=== PATIENT | female | born 1945 | race Caucasian/White ===

== ENCOUNTER → 2017-04-04 | Outpatient (CLI) | payer MEDICARE, OTHER ==
[~2017-04-04] MED LIST: ALBUTEROL0.09 MG/A2 IH; ASA; ATARAX25 MG PO; ATIVAN0.5 MG; ATIVAN0.5 MG PO; Bactrim Ds 8001 TAB PO; DUONEB 3 MG/3 ML3 M1 INH; FEOSOL300 MG PO; FUROSEMIDE40 MG PO; GLYBURIDE5 MG; GLYBURIDE5 MG PO; HYDROCODONE BIT1 T11 PO; INSULIN; IRON; KEFLEX500 MG PO; LASIX40 MG; LEVAQUIN750 MG PO; LEVOTHYROXIN0.125 MG PO; LISINOPRIL/HCTZ1 TA3; LISINOPRIL/HCTZ1 TA3 PO; METFORMIN500 MG; METFORMIN500 MG PO; MOBIC7.5 MG PO; NORCO 325 MG-7.1 TAB PO; PHENERGAN12.5 M1 PO; POTASSIUM; PREDNICOT20 MG PO; PROZAC20 MG; PROZAC20 MG PO; RANITIDINE150 MG PO; SYNTHROID0.125 MG; VALIUM5 MG PO; VICODIN ES 7501 TAB PO; ZANTAC150 MG; ZOLPIDEM10 M1 PO; [UNRECOGNIZED DRUG - OTHER] PO
[2017-04-04 11:02] LABS: HEMATOCRIT 34.7 % (37.0-47.0); HEMOGLOBIN 11.2 g/dl (12.0-16.0); MEAN CELL VOLUME 84.2 fl (81.0-99.0); MEAN CORPUSCULAR HGB 27.2 pg (27.0-31.0); MEAN CORPUSCULAR HGB CONC 32.3 g/dl (33.0-37.0); PLATELET COUNT AUTOMATED 230 10*3/uL (130-400); RED BLOOD COUNT 4.12 10*6/uL (4.10-5.10); WHITE BLOOD COUNT 10.7 10*3/uL (4.8-10.8)
[2017-04-04 11:29] LABS: LYMPHOCYTE # 0.3 10*3/uL (1.3-4.4); MONOCYTE # 0.3 10*3/uL (0.1-1.0); NEUTROPHIL # 10.1 10*3/uL (2.3-7.9); NEUTROPHILS 94 % (47-73); OVALOCYTES FEW; PLATELET SUFFICIENCY NORMAL (NORMAL); TOTAL CELLS COUNTED 100 #CELLS
== END | disposition home or self-care (01) ==
LOC: LAB 10:32
PROVIDERS: Orthopaedic Surgery
DX: M79.605 Pain in left leg (principal); M79.604 Pain in right leg

== ENCOUNTER → 2017-04-25 | Outpatient (CLI) | payer MEDICARE ==
[2017-04-25 11:52] LABS: BASO % 0.5 % (0.0-1.0); EOS # 0.1 10*3/uL (0.0-0.4); HEMATOCRIT 35.2 % (37.0-47.0); HEMOGLOBIN 11.2 g/dl (12.0-16.0); LYMPH # 1.4 10*3/uL (1.3-4.4); LYMPH % 23.2 % (27.0-41.0); MEAN CELL VOLUME 85.4 fl (81.0-99.0); MEAN CORPUSCULAR HGB 27.2 pg (27.0-31.0); MEAN CORPUSCULAR HGB CONC 31.8 g/dl (33.0-37.0); MEAN PLATELET VOLUME 10.1 fl (9.6-12.3); MONO # 0.4 10*3/uL (0.1-1.0); MONO % 6.7 % (3.0-9.0); NEUT # 4.1 10*3/uL (2.3-7.9); NEUT % 67.9 % (47.0-73.0); PLATELET COUNT AUTOMATED 182 10*3/uL (130-400); RED BLOOD COUNT 4.12 10*6/uL (4.10-5.10); RED CELL DISTRI WIDTH 15.1 % (0-14.5); WHITE BLOOD COUNT 6.1 10*3/uL (4.8-10.8)
[2017-04-26 08:10] LABS: COMPLEMENT C4 001834 27 mg/dL (14-44)
[2017-04-26 09:06] LABS: IMMUNOGLOBULIN IgE 002170 35 IU/mL (0-100)
[2017-04-28 13:05] LABS: A TITER 1:16 (.); ANTIBODY SCREEN Negative (.); B TITER Not indicated. (.); BLOOD GROUPING B (.)
[2017-04-28 14:07] LABS: IGG SUBCLASS 1 307 mg/dL (248-810); IGG SUBCLASS 2 185 mg/dL (130-555); IGG SUBCLASS 3 78 mg/dL (15-102); IGG SUBCLASS 4 8 mg/dL (2-96)
== END | disposition home or self-care (01) ==
LOC: LAB 10:36
PROVIDERS: Allergy & Immunology
DX: J18.9 Pneumonia, unspecified organism (principal); D83.9 Common variable immunodeficiency, unspecified

== ENCOUNTER → 2017-04-28 | Outpatient (CLI) | payer MEDICARE | END | disposition home or self-care (01) | LOC: LAB 01:47 | PROVIDERS: Allergy & Immunology | DX: J18.9 Pneumonia, unspecified organism (principal); D83.9 Common variable immunodeficiency, unspecified ==

== ENCOUNTER → 2017-05-05 | Day surgery (SDC) | payer MEDICARE ==
[2017-05-05] VITALS (7 sets, daily range): BP systolic 135–165; BP diastolic 54–69
[~2017-05-05] MED LIST changes: +ALLEGRA ALLERG180 M2 PO; +CHOLESTYRAMI239.4 GM PO; +GLIPIZIDE5 MG PO; -LEVOTHYROXIN0.125 MG PO; +LEVOXYL112 MCG PO; +LIPITOR40 MG PO; +LISINOPRIL10 M1 PO; +LOPRESSOR25 MG PO; +METOPROLOL TART50 M1 PO; +POTASSIUM CHLOR8 ME1 PO; +PREDNISONE5 MG PO; +VICODIN ES 7.51 EACH PO
[2017-05-05 12:24] LABS: ACT PARTIAL THROMBO TIME 20.4 SECONDS (20.8-31.5)
== END | disposition home or self-care (01) ==
LOC: EDSTATUS 13:00 → SDC 15:23
PROVIDERS: Physician Assistant
DX: M54.5 Low back pain (principal); R53.1 Weakness; Z98.1 Arthrodesis status; M75.41 Impingement syndrome of right shoulder; G62.9 Polyneuropathy, unspecified

== ENCOUNTER → 2017-06-27 | Day surgery (SDC) | payer MEDICARE ==
[2017-06-19 11:14] VITALS: BP 132/61
[2017-06-19 12:13] LABS: BASO % 0.6 % (0.0-1.0); EOS % 0.6 % (1.0-4.0); HEMATOCRIT 34.7 % (37.0-47.0); LYMPH # 1.7 10*3/uL (1.3-4.4); LYMPH % 25.8 % (27.0-41.0); MEAN CELL VOLUME 87.6 fl (81.0-99.0); MEAN CORPUSCULAR HGB 27.8 pg (27.0-31.0); MEAN CORPUSCULAR HGB CONC 31.7 g/dl (33.0-37.0); MEAN PLATELET VOLUME 10.1 fl (9.6-12.3); MONO # 0.5 10*3/uL (0.1-1.0); MONO % 7.7 % (3.0-9.0); NEUT # 4.3 10*3/uL (2.3-7.9); NEUT % 64.8 % (47.0-73.0); PLATELET COUNT AUTOMATED 199 10*3/uL (130-400); RED BLOOD COUNT 3.96 10*6/uL (4.10-5.10); RED CELL DISTRI WIDTH 13.7 % (0-14.5); WHITE BLOOD COUNT 6.6 10*3/uL (4.8-10.8)
[2017-06-19 12:16] LABS: BILIRUBIN 1+ (NEGATIVE); BLOOD NEGATIVE (NEGATIVE); CLARITY CLOUDY (CLEAR); COLOR YELLOW (YELLOW); GLUCOSE NEGATIVE (NEGATIVE); KETONE 1+ (NEGATIVE); LEUKO ESTERASE 3+ (NEGATIVE); NITRITE NEGATIVE (NEGATIVE); SPECIFIC GRAVITY 1.015 (1.005-1.030)
[2017-06-19 12:41] LABS: BUN 16 mg/dl (7-24); CHLORIDE 102 mmol/L (98-107); CREATININE 0.93 mg/dL (0.55-1.02); POTASSIUM 4.5 mmol/L (3.5-5.1); SODIUM 141 mmol/L (136-145)
[2017-06-19 12:46] LABS: ACT PARTIAL THROMBO TIME 19.8 SECONDS (20.8-31.5)
[2017-06-19 12:49] LABS: BACTERIA 2+; MUCOUS 2+; WBC TNTC wbc/hpf (0-5)
[~2017-06-27] VITALS: Ht 162.5 cm; Wt 77.1 kg
[~2017-06-27] MED LIST changes: +IPRATROPIU0.2 MG/1 M INH; +NORCO 7.5-3251 EACH PO
--- NOTE | ~2017-06-27 | PROC NOTE ---
[place], [place] PROCEDURE NOTE [id number] UNIT #: [id number] ROOM: DOCTOR: OLIVER CUEVA MD BIRTHDATE: [birth year] DOS: 06/27/2017 PREOPERATIVE DIAGNOSIS: Poor intravenous access. POSTOPERATIVE DIAGNOSIS: Poor intravenous access. PROCEDURE: Left internal jugular MediPort placement. SURGEON: Oliver Cueva MD VOCAL PERFORMER: J LUIS. ANESTHESIA: MAC. INDICATIONS: This is a 71-year-old lady who is here for a left internal jugular MediPort placement for poor IV access. The procedure and its complications were explained to the patient in detail preoperatively. Complications that were discussed included but were not limited to bleeding, infection, hemothorax formation, pneumothorax formation and prolonged pain. She agreed to proceed. DESCRIPTION OF PROCEDURE: After identifying the patient, the patient was brought to the operating suite and laid in the supine position. After timeout procedure was called, IV sedation was administered and the parts were then painted and draped in the usual sterile fashion. With the help of an ultrasound machine, the left internal jugular vein was accessed via Seldinger technique. The guidewire was passed and it was confirmed to be in good position on fluoroscopy. Thereafter, a pocket was created on the anterior chest wall approximately 2-3 fingerbreadths below the left collarbone. This was done after local anesthesia was infiltrated (1% plain lidocaine). After an adequate pocket was created, a catheter was passed over introducer from this incision into the neck where the wire was placed for the internal jugular vein. Over the wire now, the dilator and sheath was passed and the wire was removed. Through the sheath, the catheter was passed and it was confirmed to be in good position on fluoroscopy. Thereafter, the catheter was cut to adequate size and the port was attached. The catheter was now flushed with mesh and was found to flush well and also the return of blood was good. At this point, the catheter was now fixed to the underlying chest wall with the help of 3-0 Prolene and the edges of the skin were approximated first by approximating the subcutaneous tissue with the help of 3-0 Vicryl in a running fashion and the skin edges then with the help of 4-0 Vicryl in a subcuticular running fashion. Dressing was placed. The patient tolerated the procedure well and was brought back to the recovery room in stable fashion where a chest x-ray was ordered, also the left neck incision was approximated with the help of 4-0 Vicryl in a subcuticular fashion. There were no complications. Dr. Oliver Cueva, the attending surgeon, was present throughout the operating case. [place], [place] PROCEDURE NOTE NAME: JUANCARLOS BRAMBILA UNIT #: [id number] ROOM: DOCTOR: OLIVER CUEVA MD BIRTHDATE: [birth year] Oliver Cueva MD CM:PROCNOTE:PROCEDURE NOTE [id number] OLIVER CUEVA MD
[2017-06-27 06:45] VITALS: BP 112/52
[2017-06-27 08:22] VITALS: BP 109/40
[2017-06-27 08:35] VITALS: BP 115/44
[2017-06-27 08:48] VITALS: BP 132/54
== END | disposition home or self-care (01) ==
LOC: SDC 06-17 08:00
PROVIDERS: Surgery
DX: Z45.2 Encounter for adjustment and management of vascular access device (principal); E07.9 Disorder of thyroid, unspecified; E11.9 Type 2 diabetes mellitus without complications; I10 Essential (primary) hypertension; K21.9 Gastro-esophageal reflux disease without esophagitis; F41.9 Anxiety disorder, unspecified; E78.00 Pure hypercholesterolemia, unspecified; Z98.1 Arthrodesis status; Z90.49 Acquired absence of other specified parts of digestive tract; Z83.3 Family history of diabetes mellitus; Z82.49 Family history of ischemic heart disease and other diseases of the circulatory system; Z80.9 Family history of malignant neoplasm, unspecified

== ENCOUNTER → 2017-07-03 | Outpatient (CLI) | payer MEDICARE | END | disposition home or self-care (01) | LOC: US 10:00 | DX: R79.89 Other specified abnormal findings of blood chemistry (principal); Z90.49 Acquired absence of other specified parts of digestive tract ==

== ENCOUNTER 2017-08-20 16:41 | Inpatient (IN) | payer MEDICARE ==
[~2017-08-20] VITALS: Ht 162.5 cm; Wt 82.6 kg
--- NOTE | ~2017-08-20 | WRIGHTHP ---
[place], [place] PATIENT HISTORY AND PHYSICAL EXAM NAME: JUANCARLOS BRAMBILA [facility] #: [id number] UNIT #: [id number] ROOM: 419 DOCTOR: HALI ELAINE MD BIRTHDATE: [birth year] DOS: 08/20/2017 HISTORY OF PRESENT ILLNESS: The patient is a 71-year-old female with a past medical history of: 1. Benign essential hypertension. 2. 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 3. Pernicious anemia. 4. Hypothyroidism. 5. Fibromyalgia. 6. History of TIA. 7. Generalized anxiety disorder. 8. Major depression, recurrent, mild. 9. GERD. The patient presented to the Emergency Department with recurrent complaints of substernal chest pains and some feeling of shortness of breath. The patient's symptoms resolved in the Emergency Department. She was admitted and ruled out for myocardial infarction with serial cardiac enzymes. The patient was evaluated by Cardiology and taken for a cardiac stress test, which has come out to be normal. The patient is symptomatic now and will be discharged to home to follow up with her primary care physician, Dr. Peacock next week. The patient is completely asymptomatic now. Ambulatory dysfunction. The patient ambulates with the help of a cane and lives by herself. Mixed hyperlipidemia, followed, treated and controlled. Benign essential hypertension, with controlled blood pressures. Type 2 diabetes mellitus. The patient's blood sugars is to be monitored at home and the patient to bring in sugar results at her next appointment. Her sugar was found to be elevated at 367. The patient is asymptomatic. Mixed hyperlipidemia, treated with Lipitor, treatment to be continued. HOME MEDICATIONS AND DISCHARGE MANAGEMENT: Lipitor 40 mg a day, metoprolol 25 mg a day, mirtazapine 15 mg a day, Pepcid 20 mg b.i.d., levothyroxine 112 mcg daily, glipizide 5 mg b.i.d., fluoxetine 20 mg b.i.d., furosemide 40 mg daily, lisinopril 10 mg a day, potassium 8 mEq daily. FAMILY HISTORY: Noncontributory. ALLERGIES: No known drug allergies. SOCIAL HISTORY: Denies smoking cigarettes, alcohol and drug abuse. FOLLOWUP: At the office next week. [place], [place] PATIENT HISTORY AND PHYSICAL EXAM NAME: JUANCARLOS BRAMBILA UNIT #: [id number] ROOM: 419 DOCTOR: ARGENTINA ANTON,HALI Benavides BIRTHDATE: [birth year] HALI ELAINE MD CM:HISPHYS:PATIENT HISTORY AND PHYSICAL EXAMINATION [phone] HALI ELAINE MD 08/22/17 0212 interface
--- NOTE | ~2017-08-20 | ST ---
[place], [place] EXERCISE STRESS TEST REPORT NAME: JUANCARLOS BRAMBILA UNIT #: [id number] ROOM: 419 DOCTOR: RAQUEL TIDWELL MD BIRTHDATE: [birth year] DOS: 08/21/2017 LEXISCAN STRESS EKG REFERRING PHYSICIAN: Dr. Kwok INDICATION: Chest pain. Baseline EKG is normal sinus rhythm with baseline heart rate of 65 with a blood pressure of 132/62. Peak heart rate is 113 with a blood pressure of 150/78. Patient had mild chest heaviness, no EKG changes, no arrhythmias. SUMMARY OF FINDINGS: Unremarkable Lexiscan stress EKG. Please see separate report for perfusion scan results. RAQUEL TIDWELL MD CM:STRESS:EXERCISE STRESS TEST REPORT [id number] RAQUEL TIDWELL MD
[2017-08-20 16:41] VITALS: BP 146/76
[2017-08-20 17:09] LABS: BASO % 0.4 % (0.0-1.0); EOS % 0.6 % (1.0-4.0); HEMATOCRIT 30.8 % (37.0-47.0); HEMOGLOBIN 9.9 g/dl (12.0-16.0); LYMPH # 1.4 10*3/uL (1.3-4.4); LYMPH % 20.7 % (27.0-41.0); MEAN CELL VOLUME 86.5 fl (81.0-99.0); MEAN CORPUSCULAR HGB 27.8 pg (27.0-31.0); MEAN CORPUSCULAR HGB CONC 32.1 g/dl (33.0-37.0); MEAN PLATELET VOLUME 9.8 fl (9.6-12.3); MONO # 0.5 10*3/uL (0.1-1.0); MONO % 7.8 % (3.0-9.0); NEUT # 4.7 10*3/uL (2.3-7.9); NEUT % 69.9 % (47.0-73.0); PLATELET COUNT AUTOMATED 196 10*3/uL (130-400); RED BLOOD COUNT 3.56 10*6/uL (4.10-5.10); RED CELL DISTRI WIDTH 13.6 % (0-14.5); WHITE BLOOD COUNT 6.7 10*3/uL (4.8-10.8)
[2017-08-20 17:20] LABS: ACT PARTIAL THROMBO TIME 21.8 SECONDS (20.8-31.5)
[2017-08-20 17:25] LABS: ALBUMIN 3.1 gm/dl (3.1-4.5); CREATININE 1.17 mg/dL (0.55-1.02); POTASSIUM 3.8 mmol/L (3.5-5.1); TOTAL PROTEIN 7.5 gm/dL (6.4-8.2)
[2017-08-20 17:26] LABS: TROPONIN I 0.019 ng/ml (<0.045)
[2017-08-20 17:34] LABS: RETICULOCYTE % 1.96 % (0.50-2.50)
[2017-08-20 17:37] LABS: IRON 33 ug/dL (50-170); TOTAL IRON BINDING CAPACITY 437 ug/dl (250-450)
--- NOTE | 2017-08-20 18:05 | NUR ---
A 71, admitted to , under the services of Dr. ARGENTINA ANTON,HALI Benavides with a diagnosis of UNSTABLE ANGINA. Chief complaint is CHEST PAIN/PRESSURE. Patient arrived via stretcher from ER. Monitor applied. Initial assessment completed. Vital signs taken and recorded. DR. ARGENTINA ANTON,HALI Benavides notified of admission to the unit. Orders received. See assessment for past medical history, medications and allergies. Patient and/or family oriented to unit. [address] visitation policy reviewed. Clothing/patient valuable form completed. EDOUARD SCHMITT
[2017-08-20 18:13] VITALS: BP 135/58
[2017-08-20] MEDS ORDERED: REMERON15 M2 PO (18:38)
--- NOTE | 2017-08-20 18:40 | NUR ---
MEDICAION LIST UPDATED. CALLED AND VARIFIED MEDICAIONS WITH [facility] AND WENT OVER MEDICAIONS WITH PATIENT.
--- NOTE | 2017-08-20 18:47 | NUR ---
PAULETTE TIDWELL ANSWERING SERVICE. DR. AQUINO IS [employer] WORKER. THEY ARE PAGING HIM, AWAITING CALL BACK
[2017-08-20 20:00] VITALS: BP 120/52
--- NOTE | 2017-08-20 21:00 | NUR ---
BLOOD CULTURE AND URINE FOR UA AND CULT SENT PRIOR TO STARTING ANTIBIOTICS.
--- NOTE | 2017-08-20 22:16 | NUR ---
VALIUM GIVEN PER ORDER FOR ANXIETY PER PT. REQUEST. SEE MAR.
[2017-08-21] VITALS: BP 118/55
--- NOTE | 2017-08-21 | NUR ---
VALIUM EFFECTIVE FOR ANXIETY PER PT.
--- NOTE | 2017-08-21 06:23 | NUR ---
called Dr. Reynoos answering service and message left for consult.
--- NOTE | 2017-08-21 07:10 | NUR ---
DR. AQUINO CALLED IN AND NOTIFIED OF CONSULT AND ORDERS RECEIVED TO KEEP PT. NPO
[2017-08-21 08:00] VITALS: BP 125/60
--- NOTE | 2017-08-21 08:00 | NUR ---
IN TO SEE PT, PT ALERT AND ORIENTED, PLEASANT MOOD. NO S/S OF DISTRESS. RESPIRATIONS EASY. PT IS NPO AT THIS TIME SO AM MEDICATIONS HELD DUE TO THAT REASON. PT UNDERSTANDS NPO. ENCOURAGED USE OF CALL LIGHT.
--- NOTE | 2017-08-21 08:30 | NUR ---
Plating Foreman in to talk to patient. Patient states lives at HOME with SON AT TIMES-HE IS A MEDICAL DOCTOR MD. There are 0 HAS RAMP steps in the home. Physician: DR RANGEL [facility]ONE Patient's level of ADLs: MINIMAL ASSIST Patient has working utilities: YES DME: [facility] Follow-up physician's appointment after d/c: PREFERS TO MAKE HER OWN APPT Does patient want to access PORTAL?: Discharge plan HOME. ROSITA STAPLES
[2017-08-21 12:00] VITALS: BP 120/55
--- NOTE | 2017-08-21 12:00 | NUR ---
PT LYING IN BED, RESPRIATIONS EASY, NO S/S OF DISTRESS. ENCOURAGED USE OF CALL LIGHT.
--- NOTE | 2017-08-21 13:45 | NUR ---
PT OFF FLOOR FOR STRESS TEST AT THIS TIME.
--- NOTE | 2017-08-21 14:45 | NUR ---
INFORMED CONSENT OBTAINED FOR LEXISCAN NUCLEAR STRESS WITH DR. TIDWELL. RESTING EKG NSR WITH A RESTING HR OF 65 AND BP OF 132/62. LUNGS CLEAR WITH SPO2 OF 99% ON ROOM AIR. PT COMPLETED A 1:00 LEXISCAN PROTOCOL RECEIVING LEXISCAN 0.4 MG IV OVER 10 SECONDS. HAD C/O "CHEST HEAVINESS" THAT WAS RELIEVED IN RECOVERY. HAD NO EKG CHANGES. HAD A PEAK HR OF 113 WITH BP OF 152/78. LAST RECOVERY HR OF 102 WITH BP OF 150/78. AWAITING SCANNING IN STABLE CONDITION.
[2017-08-21 16:00] VITALS: BP 128/48
--- NOTE | 2017-08-21 16:30 | NUR ---
PT RETURNS TO FLOOR FROM STRESS TEST. NO NEW ABNORMALITIES, RESPIRATIONS EASY AND UNLABORED. ALL NEEDS CURRENTLY MET. ENCOURAGED USE OF CALL LIGHT.
--- NOTE | 2017-08-21 17:36 | NUR ---
SPOKE WITH DR. TIDWELL, PT STRESS TEST IS NEGATIVE. RELAYED MESSAGE TO DR. ELAINE, PRIMARY CARE PHYSICIAN.
--- NOTE | 2017-08-21 18:30 | NUR ---
Discharge instructions reviewed with patient/family. Patient receptive and verbalizes understanding. Follow-up care arranged. Written instructions given to patient/family. SHAAN BERRY
== END 2017-08-21 18:30 | disposition home or self-care (01) | DRG 303 ==
LOC: ED 16:41 → 4E 17:08 → EDHOLD 17:08 → 4E 17:35
PROVIDERS: Emergency Medicine; ADMIT Internal Medicine
PROC: 3E073KZ Introduction of Other Diagnostic Substance into Coronary Artery, Percutaneous Approach (ICD-10-PCS; principal; 2017-08-21)
PROC: 4A02XM4 Measurement of Cardiac Total Activity, External Approach (ICD-10-PCS; principal; 2017-08-21)
DX: I25.110 Atherosclerotic heart disease of native coronary artery with unstable angina pectoris (principal); E11.22 Type 2 diabetes mellitus with diabetic chronic kidney disease; I50.9 Heart failure, unspecified; I13.0 Hypertensive heart and chronic kidney disease with heart failure and stage 1 through stage 4 chronic kidney disease, or unspecified chronic kidney disease; E87.1 Hypo-osmolality and hyponatremia; F33.9 Major depressive disorder, recurrent, unspecified; E83.42 Hypomagnesemia; R74.0 Nonspecific elevation of levels of transaminase and lactic acid dehydrogenase [LDH]; M47.896 Other spondylosis, lumbar region; E89.0 Postprocedural hypothyroidism; M47.892 Other spondylosis, cervical region; F41.1 Generalized anxiety disorder; K21.9 Gastro-esophageal reflux disease without esophagitis; M15.9 Polyosteoarthritis, unspecified; N18.3 Chronic kidney disease, stage 3 (moderate); E78.2 Mixed hyperlipidemia; M79.7 Fibromyalgia; Z79.899 Other long term (current) drug therapy; D50.9 Iron deficiency anemia, unspecified; Z87.01 Personal history of pneumonia (recurrent); Z98.51 Tubal ligation status; Z90.49 Acquired absence of other specified parts of digestive tract; Z90.710 Acquired absence of both cervix and uterus; Z83.3 Family history of diabetes mellitus; Z82.3 Family history of stroke; Z80.9 Family history of malignant neoplasm, unspecified; Z82.49 Family history of ischemic heart disease and other diseases of the circulatory system; Z86.73 Personal history of transient ischemic attack (TIA), and cerebral infarction without residual deficits; Z85.850 Personal history of malignant neoplasm of thyroid; Z98.1 Arthrodesis status; Z72.89 Other problems related to lifestyle; Z87.891 Personal history of nicotine dependence; Z79.84 Long term (current) use of oral hypoglycemic drugs

== ENCOUNTER → 2017-11-05 | Outpatient (CLI) | payer MEDICARE ==
[~2017-11-05] MED LIST changes: +REMERON15 M2 PO
== END | disposition home or self-care (01) ==
LOC: MAMMO 10:37
DX: Z12.31 Encounter for screening mammogram for malignant neoplasm of breast (principal); Z13.820 Encounter for screening for osteoporosis; R92.8 Other abnormal and inconclusive findings on diagnostic imaging of breast; N95.9 Unspecified menopausal and perimenopausal disorder; Z90.710 Acquired absence of both cervix and uterus; C73 Malignant neoplasm of thyroid gland

== ENCOUNTER → 2017-12-02 | Outpatient (CLI) | payer MEDICARE | END | disposition home or self-care (01) | LOC: RAD 16:12 | DX: M43.16 Spondylolisthesis, lumbar region (principal) ==

== ENCOUNTER → 2018-02-19 | Outpatient (CLI) | payer MEDICARE ==
[~2018-02-19] MED LIST changes: +CIPRO500 MG PO; +CYMBALTA30 MG PO; +FLAGYL500 MG PO; +HUMULIN 70/30 703 M1 SC
[2018-02-19 12:03] LABS: BASO # 0.1 10*3/uL (0.0-0.1); BASO % 0.8 % (0.0-1.0); EOS # 0.2 10*3/uL (0.0-0.4); EOS % 1.6 % (1.0-4.0); HEMATOCRIT 38.3 % (37.0-47.0); HEMOGLOBIN 12.3 g/dl (12.0-16.0); LYMPH # 1.8 10*3/uL (1.3-4.4); LYMPH % 19.5 % (27.0-41.0); MEAN CORPUSCULAR HGB 29.2 pg (27.0-31.0); MEAN CORPUSCULAR HGB CONC 32.1 g/dl (33.0-37.0); MEAN PLATELET VOLUME 9.7 fl (9.6-12.3); MONO # 0.7 10*3/uL (0.1-1.0); MONO % 7.4 % (3.0-9.0); NEUT # 6.6 10*3/uL (2.3-7.9); NEUT % 70.1 % (47.0-73.0); PLATELET COUNT AUTOMATED 265 10*3/uL (130-400); RED BLOOD COUNT 4.21 10*6/uL (4.10-5.10); RED CELL DISTRI WIDTH 13.4 % (0-14.5); WHITE BLOOD COUNT 9.4 10*3/uL (4.8-10.8)
[2018-02-19 12:28] LABS: BUN 26 mg/dl (7-24); CREATININE 0.95 mg/dL (0.55-1.02)
== END | disposition home or self-care (01) ==
LOC: LAB 11:37
PROVIDERS: Internal Medicine Hematology & Oncology
DX: D80.1 Nonfamilial hypogammaglobulinemia (principal); D63.8 Anemia in other chronic diseases classified elsewhere

== ENCOUNTER 2018-02-25 08:09 | Inpatient (IN) | payer MEDICARE ==
[2018-02-25] VITALS (7 sets, daily range): BP systolic 109–138; BP diastolic 41–56
[~2018-02-25] VITALS: Ht 162.5 cm; Wt 92.1 kg
--- NOTE | ~2018-02-25 | WRIGHTHP ---
[place], [place] PATIENT HISTORY AND PHYSICAL EXAM [id number] #: [id number] ROOM: [facility] DOCTOR: GEORGIANA RANGEL MD BIRTHDATE: [birth year] DOS: 02/25/2018 HISTORY OF PRESENT ILLNESS: The patient is 72-year-old. The patient has been in fairly good health. On Friday she went to a cookout. She states that she did not eat much other than a few frozen strawberries and some peaches and a chicken sandwich. In the evening, she started having severe abdominal pain, which persisted on Friday and Friday. It got severe, so she finally decided to come into the Emergency Room on Friday. She had a CT of the abdomen done in the ER, which showed evidence of diverticulitis and she was admitted. She has had a low grade fever for the last few days. The fever after admission was in the low 100s. She denies having any chest pains, palpitations. Does not have any nausea and emesis. She feels a little better this morning. PAST MEDICAL HISTORY: Significant for: 1. Last hospitalization in August 2017 with chest pain. She underwent cardiac cath and stent placement after that. 2. Benign hypertension. 3. Type 2 diabetes mellitus. 4. Hypothyroidism. 5. Chronic low back pain. 6. Fibromyalgia. 7. Generalized anxiety disorder. 8. Mild major depression, recurrent. MEDICATIONS: That she is currently on are: Duloxetine 30 daily, Edith 180 daily p.r.n., Lasix 40 daily, Mellott 7.5 b.i.d., levothyroxine 112 mcg daily, lisinopril 10 daily, metoprolol 25 b.i.d., potassium 8 daily, ranitidine 150 b.i.d., insulin 15 units subcutaneous twice a day. SOCIAL HISTORY: Nonsmoker, does not use any alcohol. PHYSICAL EXAMINATION: GENERAL: The patient is awake and alert and oriented. VITAL SIGNS: Blood pressure is 122/70, pulse of 76, respirations 18, T-max 101.8. LUNGS: Diminished breath sounds. HEART: Regular. ABDOMEN: Obese. Some tenderness diffusely, more on the left lower quadrant. ASSESSMENT AND PLAN: 1. A patient who presents with elevated white cell count, high-grade fever and abdominal pain. CT of the abdomen is showing diverticulitis without any abscess formation. The patient is placed on IV antibiotics and IV fluids, clear liquids have been ordered. 2. Possibility of urinary tract infection. Leukocyte esterase is positive along with bacteria. Urine culture is being sent. White cell count is 11.6. 3. Coronary artery disease, stable without any evidence of ongoing cardiac issues. [place], [place] PATIENT HISTORY AND PHYSICAL EXAM NAME: JUANCARLOS BRAMBILA UNIT #: [id number] ROOM: [facility] DOCTOR: GEORGIANA RANGEL MD BIRTHDATE: [birth year] GEORGIANA RANGEL MD CM:HISPHYS:PATIENT HISTORY AND PHYSICAL EXAMINATION [id number] GEORGIANA RANGEL MD 03/14/18 0404 interface
--- NOTE | ~2018-02-25 | PR ---
[place], [place] PROGRESS NOTE NAME: JUANCARLOS BRAMBILA UNIT #: [id number] ROOM: 515 DOCTOR: GEORGIANA RANGEL MD BIRTHDATE: [birth year] DOS: 02/28/2018 SUBJECTIVE: The patient feels very good, does not have any complaints. Abdominal pain is not completely gone, but it is much better since admission. OBJECTIVE: VITAL SIGNS: Graphic trend shows the patient is afebrile. Blood pressure is 116/53, pulse of 69, respirations 20, temperature 98.3. LUNGS: Diminished breath sounds. No wheezes, rales or rhonchi heard. HEART: Regular. ABDOMEN: Obese, soft, nontender. EXTREMITIES: Without any edema. ASSESSMENT AND PLAN: 1. Acute diverticulitis, improved on IV antibiotics. Blood culture shows no bacterial growth. 2. Urinary tract infection with 75,000 colonies of Escherichia coli, on antibiotics. Plan is to discharge her to home today on Cipro and Flagyl for a week. GEORGIANA RANGEL MD CM:PNTRANS [phone] GEORGIANA RANGEL MD 03/01/18 0132 interface
--- NOTE | ~2018-02-25 | PR ---
[place], [place] PROGRESS NOTE NAME: JUANCARLOS BRAMBILA UNIT #: [id number] ROOM: 515 DOCTOR: GEORGIANA RANGEL MD BIRTHDATE: [birth year] DOS: 02/27/2018 SUBJECTIVE: The patient feels much better, does not have any new complaints. Abdominal pain has subsided, but not completely resolved. OBJECTIVE: VITAL SIGNS: Graphic trend shows a pressure of 110/45, pulse of 18, respirations, 75, temperature 97.9. LUNGS: Clear. HEART: Regular. ABDOMEN: Obese. Some minimal diffuse tenderness. EXTREMITIES: Without any edema. LABORATORY DATA: Urine culture shows E. coli, 25,000 colonies. ASSESSMENT AND PLAN: 1. Acute diverticulitis on IV antibiotics. Repeat CBC is pending, but the patient is no longer febrile. Advance the diet and if the white cell count normalizes, plan is to discharge her to home tomorrow. 2. Urinary tract infection with urine culture showing Escherichia coli, already on antibiotics. GEORGIANA RANGEL MD CM:PNTRANS [phone] GEORGIANA RANGEL MD 02/27/182150 interface
--- NOTE | ~2018-02-25 | DS ---
[place], [place] DISCHARGE SUMMARY NAME: JUANCARLOS BRAMBILA UNIT #: [id number] ROOM: 515 DOCTOR: GEORGIANA RANGEL MD BIRTHDATE: [birth year] DOS: 02/28/2018 DIAGNOSES: 1. Acute diverticulitis. 2. Urinary tract infection with Escherichia coli. 3. Coronary artery disease of [place] coronaries. 4. Generalized anxiety disorder. 5. Chronic low back pain. 6. Fibromyalgia. 7. Major depression, mild, recurrent. MEDICATIONS: The patient has been discharged on home medications, new prescription given was Cipro 500 b.i.d. for 7 days and Flagyl 500 t.i.d. for 7 days. HOSPITAL COURSE: The patient is known to us, comes in with complaints of severe abdominal pain. Please refer to H and P for details. The patient was seen in the Emergency Room, a CT of the abdomen was done which showed a noncomplicated diverticulitis. The patient was seen in the ER after eating some frozen strawberries and some peaches. She did not have any nuts or ____. After admission, was placed on IV antibiotics, IV fluids, kept n.p.o. Her pain has lessened and the tenderness in the abdomen is also improved. So, the plan therefore is to discharge her to home. She had a fever in the beginning with elevated white cell count. They have all normalized. So, the plan is to discharge and follow up with outpatient with the antibiotics. The patient will require a colonoscopy as an outpatient. GEORGIANA RANGEL MD CM:DISCHARG [id number] GEORGIANA RANGEL MD 03/13/18 0834 interface
[~2018-02-25 08:09] MED LIST changes: -CIPRO500 MG PO; -CYMBALTA30 MG PO; -FLAGYL500 MG PO; -HUMULIN 70/30 703 M1 SC
[2018-02-25] MEDS ORDERED: CYMBALTA30 MG PO (08:33)
[2018-02-25] MEDS ORDERED: HUMULIN 70/30 703 M1 SC (08:34)
[2018-02-25 09:00] LABS: BASO % 0.2 % (0.0-1.0); EOS # 0.1 10*3/uL (0.0-0.4); EOS % 0.9 % (1.0-4.0); HEMATOCRIT 34.6 % (37.0-47.0); HEMOGLOBIN 11.3 g/dl (12.0-16.0); MEAN CELL VOLUME 89.4 fl (81.0-99.0); MEAN CORPUSCULAR HGB 29.2 pg (27.0-31.0); MEAN CORPUSCULAR HGB CONC 32.7 g/dl (33.0-37.0); MEAN PLATELET VOLUME 9.6 fl (9.6-12.3); MONO # 0.6 10*3/uL (0.1-1.0); MONO % 5.5 % (3.0-9.0); NEUT # 9.7 10*3/uL (2.3-7.9); NEUT % 83.9 % (47.0-73.0); PLATELET COUNT AUTOMATED 171 10*3/uL (130-400); RED BLOOD COUNT 3.87 10*6/uL (4.10-5.10); RED CELL DISTRI WIDTH 13.2 % (0-14.5); WHITE BLOOD COUNT 11.6 10*3/uL (4.8-10.8)
[2018-02-25 09:18] LABS: ALBUMIN 3.1 gm/dl (3.1-4.5); ALKALINE PHOSPHATASE 106 U/L (45-117); BUN 15 mg/dl (7-24); CHLORIDE 103 mmol/L (98-107); CREATININE 0.67 mg/dL (0.55-1.02); LIPASE 103 U/L (73-393); POTASSIUM 4.2 mmol/L (3.5-5.1); SGOT/AST 27 IU/L (3-35); SGPT/ALT 101 U/L (12-78); SODIUM 138 mmol/L (136-145); TOTAL PROTEIN 7.1 gm/dL (6.4-8.2)
[2018-02-25 09:19] LABS: TROPONIN I < 0.015 ng/ml (<0.045)
[2018-02-25 09:46] LABS: BILIRUBIN NEGATIVE (NEGATIVE); BLOOD TRACE-INTACT (NEGATIVE); CLARITY CLOUDY (CLEAR); COLOR YELLOW (YELLOW); GLUCOSE NEGATIVE (NEGATIVE); KETONE NEGATIVE (NEGATIVE); LEUKO ESTERASE 1+ (NEGATIVE); NITRITE NEGATIVE (NEGATIVE); PH 5.5 (5.0-9.0); SPECIFIC GRAVITY 1.025 (1.005-1.030); UROBILINOGEN 0.2 E.U./dl (0.2-1.0)
[2018-02-25 10:15] LABS: BACTERIA 1+; YEAST TRACE
[2018-02-26] VITALS: BP 110/50
[2018-02-26 08:00] VITALS: BP 122/52
[2018-02-26 12:00] VITALS: BP 138/54
[2018-02-26 16:00] VITALS: BP 142/67
[2018-02-26 20:00] VITALS: BP 133/46
[2018-02-27] VITALS: BP 110/45
[2018-02-27 08:00] VITALS: BP 132/75
[2018-02-27 09:54] LABS: BASO % 0.3 % (0.0-1.0); EOS # 0.1 10*3/uL (0.0-0.4); EOS % 1.4 % (1.0-4.0); HEMATOCRIT 31.5 % (37.0-47.0); HEMOGLOBIN 10.4 g/dl (12.0-16.0); LYMPH # 0.4 10*3/uL (1.3-4.4); MEAN CELL VOLUME 89.7 fl (81.0-99.0); MEAN CORPUSCULAR HGB 29.6 pg (27.0-31.0); MEAN PLATELET VOLUME 9.9 fl (9.6-12.3); MONO # 0.3 10*3/uL (0.1-1.0); MONO % 5.1 % (3.0-9.0); NEUT % 85.7 % (47.0-73.0); PLATELET COUNT AUTOMATED 143 10*3/uL (130-400); RED BLOOD COUNT 3.51 10*6/uL (4.10-5.10); RED CELL DISTRI WIDTH 12.7 % (0-14.5); WHITE BLOOD COUNT 5.9 10*3/uL (4.8-10.8)
[2018-02-27 10:05] LABS: BUN 7 mg/dl (7-24); CHLORIDE 104 mmol/L (98-107); CREATININE 0.77 mg/dL (0.55-1.02); POTASSIUM 3.6 mmol/L (3.5-5.1); SODIUM 139 mmol/L (136-145)
[2018-02-27 12:00] VITALS: BP 132/55
[2018-02-27 16:00] VITALS: BP 126/55
[2018-02-27 20:00] VITALS: BP 133/66
[2018-02-28] VITALS: BP 116/53
[2018-02-28] MEDS ORDERED: CIPRO500 MG PO (06:28)
[2018-02-28] MEDS ORDERED: FLAGYL500 MG PO (06:28)
== END 2018-02-28 09:10 | disposition home or self-care (01) | DRG 690 ==
LOC: ED 08:09 → EDHOLD 10:55 → 5E 10:55
PROVIDERS: Emergency Medicine; Internal Medicine
DX: N39.0 Urinary tract infection, site not specified (principal); E11.9 Type 2 diabetes mellitus without complications; K57.32 Diverticulitis of large intestine without perforation or abscess without bleeding; I50.9 Heart failure, unspecified; I11.0 Hypertensive heart disease with heart failure; E66.9 Obesity, unspecified; B96.20 Unspecified Escherichia coli [E. coli] as the cause of diseases classified elsewhere; E78.5 Hyperlipidemia, unspecified; I25.10 Atherosclerotic heart disease of native coronary artery without angina pectoris; F32.9 Major depressive disorder, single episode, unspecified; E89.0 Postprocedural hypothyroidism; R31.9 Hematuria, unspecified; F41.1 Generalized anxiety disorder; G89.29 Other chronic pain; M47.892 Other spondylosis, cervical region; M47.896 Other spondylosis, lumbar region; M79.7 Fibromyalgia; K21.9 Gastro-esophageal reflux disease without esophagitis; Z87.01 Personal history of pneumonia (recurrent); Z90.710 Acquired absence of both cervix and uterus; Z90.49 Acquired absence of other specified parts of digestive tract; Z98.61 Coronary angioplasty status; Z98.1 Arthrodesis status; Z98.51 Tubal ligation status; Z98.84 Bariatric surgery status; Z87.891 Personal history of nicotine dependence; Z82.49 Family history of ischemic heart disease and other diseases of the circulatory system; Z83.3 Family history of diabetes mellitus; Z82.3 Family history of stroke; Z80.8 Family history of malignant neoplasm of other organs or systems; Z88.2 Allergy status to sulfonamides; Z79.899 Other long term (current) drug therapy; Z79.4 Long term (current) use of insulin; Z86.73 Personal history of transient ischemic attack (TIA), and cerebral infarction without residual deficits; Z85.850 Personal history of malignant neoplasm of thyroid; Z68.34 Body mass index [BMI] 34.0-34.9, adult

== ENCOUNTER → 2018-03-20 | Outpatient (CLI) | payer MEDICARE ==
[~2018-03-20] MED LIST changes: +CEFUROXIME AXE250 MG PO; +CEPHALEXIN500 M1 PO; +CIPRO500 MG PO; +CYMBALTA20 M1 PO; +CYMBALTA30 MG PO; +FLAGYL500 MG PO; +HUMULIN 70/30 703 M1 SC; +TRAZODONE50 MG PO
[2018-03-20 11:36] LABS: BASO % 0.7 % (0.0-1.0); EOS # 0.1 10*3/uL (0.0-0.4); EOS % 3.1 % (1.0-4.0); HEMATOCRIT 35.9 % (37.0-47.0); HEMOGLOBIN 11.4 g/dl (12.0-16.0); LYMPH # 1.3 10*3/uL (1.3-4.4); LYMPH % 29.8 % (27.0-41.0); MEAN CELL VOLUME 89.1 fl (81.0-99.0); MEAN CORPUSCULAR HGB 28.3 pg (27.0-31.0); MEAN CORPUSCULAR HGB CONC 31.8 g/dl (33.0-37.0); MEAN PLATELET VOLUME 9.6 fl (9.6-12.3); MONO # 0.4 10*3/uL (0.1-1.0); MONO % 8.8 % (3.0-9.0); NEUT # 2.4 10*3/uL (2.3-7.9); NEUT % 57.1 % (47.0-73.0); PLATELET COUNT AUTOMATED 258 10*3/uL (130-400); RED BLOOD COUNT 4.03 10*6/uL (4.10-5.10); RED CELL DISTRI WIDTH 12.3 % (0-14.5); RETICULOCYTE % 2.15 % (0.50-2.50); WHITE BLOOD COUNT 4.2 10*3/uL (4.8-10.8)
[2018-03-20 12:07] LABS: ALBUMIN 3.3 gm/dl (3.1-4.5); BUN 12 mg/dl (7-24); CHLORIDE 102 mmol/L (98-107); CREATININE 0.73 mg/dL (0.55-1.02); POTASSIUM 4.1 mmol/L (3.5-5.1); SGOT/AST 20 IU/L (3-35); SGPT/ALT 35 U/L (12-78); SODIUM 138 mmol/L (136-145); TOTAL PROTEIN 7.8 gm/dL (6.4-8.2)
[2018-03-20 12:13] LABS: ALKALINE PHOSPHATASE 129 U/L (45-117); FREE T4 1.17 ng/dl (0.76-1.46); IRON 55 ug/dL (50-170); TOTAL IRON BINDING CAPACITY 362 ug/dl (250-450)
[2018-03-20 12:27] LABS: FERRITIN 15.5 ng/mL (10.0-291.0)
[2018-03-21 05:11] LABS: TOTAL PROTEIN, SERUM 7.1 g/dL (6.0-8.5)
[2018-03-21 07:10] LABS: HEPATITIS B SURFACE AG Negative (Negative); HEPATITIS C VIRUS ANTIBODY 0.1 s/co (0.0-0.9)
[2018-03-21 08:44] LABS: IMMUNOGLOBULIN G, QNT 1339 mg/dL (700-1600); IMMUNOGLOBULIN M, QNT 181 mg/dL (26-217)
[2018-03-23 17:08] LABS: ALBUMIN 3.5 g/dL (2.9-4.4); ALPHA-1-GLOBULIN 0.2 g/dL (0.0-0.4); ALPHA-2-GLOBULIN 0.8 g/dL (0.4-1.0); BETA GLOBULIN 1.1 g/dL (0.7-1.3); GAMMA GLOBULIN 1.4 g/dL (0.4-1.8); GLOBULIN, TOTAL 3.6 g/dL (2.2-3.9); M-SPIKE Not Observed g/dL (Not Observed)
== END | disposition home or self-care (01) ==
LOC: LAB 10:59
PROVIDERS: Internal Medicine Hematology & Oncology
DX: D83.9 Common variable immunodeficiency, unspecified (principal); E11.9 Type 2 diabetes mellitus without complications; R53.83 Other fatigue

== ENCOUNTER → 2018-06-26 | Outpatient (CLI) | payer MEDICARE ==
[~2018-06-26] MED LIST changes: +ARNUITY ELLIP100 MCG INH; +ASPIR LOW81 MG PO; +Bactroban Oint22 GM T
[2018-06-26 15:57] LABS: BASO # 0.1 10*3/uL (0.0-0.1); BASO % 0.5 % (0.0-1.0); EOS # 0.2 10*3/uL (0.0-0.4); EOS % 1.5 % (1.0-4.0); HEMATOCRIT 37.6 % (37.0-47.0); HEMOGLOBIN 11.7 g/dl (12.0-16.0); LYMPH # 2.9 10*3/uL (1.3-4.4); LYMPH % 22.8 % (27.0-41.0); MEAN CELL VOLUME 81.6 fl (81.0-99.0); MEAN CORPUSCULAR HGB 25.4 pg (27.0-31.0); MEAN CORPUSCULAR HGB CONC 31.1 g/dl (33.0-37.0); MONO # 0.8 10*3/uL (0.1-1.0); MONO % 6.1 % (3.0-9.0); NEUT # 8.7 10*3/uL (2.3-7.9); NEUT % 68.2 % (47.0-73.0); PLATELET COUNT AUTOMATED 310 10*3/uL (130-400); RED BLOOD COUNT 4.61 10*6/uL (4.10-5.10); RED CELL DISTRI WIDTH 14.6 % (0-14.5); WHITE BLOOD COUNT 12.7 10*3/uL (4.8-10.8)
[2018-06-26 16:15] LABS: ALBUMIN 3.6 gm/dl (3.1-4.5); CREATININE 1.31 mg/dL (0.55-1.02); PHOSPHOROUS 4.5 mg/dL (2.5-4.9); POTASSIUM 4.1 mmol/L (3.5-5.1); TOTAL PROTEIN 7.9 gm/dL (6.4-8.2)
[2018-06-27 08:11] LABS: IMMUNOGLOBULIN G, QNT 776 mg/dL (700-1600)
== END | disposition home or self-care (01) ==
LOC: LAB 15:28
PROVIDERS: Nurse Practitioner
DX: D80.1 Nonfamilial hypogammaglobulinemia (principal)

== ENCOUNTER → 2018-07-17 | Outpatient (CLI) | payer MEDICARE ==
[2018-07-17 13:12] LABS: BASO % 0.6 % (0.0-1.0); EOS # 0.1 10*3/uL (0.0-0.4); EOS % 1.7 % (1.0-4.0); HEMATOCRIT 35.7 % (37.0-47.0); LYMPH # 1.4 10*3/uL (1.3-4.4); MEAN CELL VOLUME 81.5 fl (81.0-99.0); MEAN CORPUSCULAR HGB 25.1 pg (27.0-31.0); MEAN CORPUSCULAR HGB CONC 30.8 g/dl (33.0-37.0); MEAN PLATELET VOLUME 9.7 fl (9.6-12.3); MONO # 0.4 10*3/uL (0.1-1.0); MONO % 7.5 % (3.0-9.0); NEUT # 3.4 10*3/uL (2.3-7.9); PLATELET COUNT AUTOMATED 197 10*3/uL (130-400); RED BLOOD COUNT 4.38 10*6/uL (4.10-5.10); RED CELL DISTRI WIDTH 14.8 % (0-14.5); WHITE BLOOD COUNT 5.2 10*3/uL (4.8-10.8)
[2018-07-17 13:28] LABS: ALBUMIN 3.6 gm/dl (3.1-4.5); ALKALINE PHOSPHATASE 144 U/L (45-117); BUN 14 mg/dl (7-24); CHLORIDE 102 mmol/L (98-107); CREATININE 1.01 mg/dL (0.55-1.02); PHOSPHOROUS 3.1 mg/dL (2.5-4.9); POTASSIUM 4.3 mmol/L (3.5-5.1); SGOT/AST 14 IU/L (3-35); SGPT/ALT 21 U/L (12-78); SODIUM 137 mmol/L (136-145); TOTAL PROTEIN 7.2 gm/dL (6.4-8.2)
[2018-07-18 10:07] LABS: IMMUNOGLOBULIN G, QNT 847 mg/dL (700-1600)
== END | disposition home or self-care (01) ==
LOC: LAB 12:48
PROVIDERS: Nurse Practitioner
DX: D80.1 Nonfamilial hypogammaglobulinemia (principal)

== ENCOUNTER → 2018-08-06 | Outpatient (CLI) | payer MEDICARE ==
[2018-08-06 12:46] LABS: BASO % 0.7 % (0.0-1.0); EOS # 0.2 10*3/uL (0.0-0.4); EOS % 3.3 % (1.0-4.0); HEMATOCRIT 34.3 % (37.0-47.0); HEMOGLOBIN 10.8 g/dl (12.0-16.0); LYMPH # 1.1 10*3/uL (1.3-4.4); LYMPH % 19.3 % (27.0-41.0); MEAN CELL VOLUME 79.8 fl (81.0-99.0); MEAN CORPUSCULAR HGB 25.1 pg (27.0-31.0); MEAN CORPUSCULAR HGB CONC 31.5 g/dl (33.0-37.0); MEAN PLATELET VOLUME 9.9 fl (9.6-12.3); MONO # 0.4 10*3/uL (0.1-1.0); MONO % 6.4 % (3.0-9.0); PLATELET COUNT AUTOMATED 250 10*3/uL (130-400); RED CELL DISTRI WIDTH 15.2 % (0-14.5); WHITE BLOOD COUNT 5.7 10*3/uL (4.8-10.8)
[2018-08-06 13:11] LABS: ALBUMIN 3.5 gm/dl (3.1-4.5); CREATININE 1.11 mg/dL (0.55-1.02); PHOSPHOROUS 3.6 mg/dL (2.5-4.9); POTASSIUM 3.8 mmol/L (3.5-5.1); TOTAL PROTEIN 7.5 gm/dL (6.4-8.2)
[2018-08-07 08:12] LABS: IMMUNOGLOBULIN G, QNT 812 mg/dL (700-1600)
== END | disposition home or self-care (01) ==
LOC: LAB 11:43
PROVIDERS: Nurse Practitioner
DX: D80.1 Nonfamilial hypogammaglobulinemia (principal)

== ENCOUNTER → 2018-08-21 | Outpatient (CLI) | payer MEDICARE | END | disposition home or self-care (01) | LOC: RAD 15:53 | DX: M85.88 Other specified disorders of bone density and structure, other site (principal); M51.36 Other intervertebral disc degeneration, lumbar region; M48.54XD Collapsed vertebra, not elsewhere classified, thoracic region, subsequent encounter for fracture with routine healing; Z91.81 History of falling ==

== ENCOUNTER → 2018-08-31 | Outpatient (CLI) | payer MEDICARE ==
[2018-08-31 15:26] LABS: ALBUMIN 3.7 gm/dl (3.1-4.5); ALKALINE PHOSPHATASE 158 U/L (45-117); BUN 13 mg/dl (7-24); CHLORIDE 101 mmol/L (98-107); CREATININE 0.95 mg/dL (0.55-1.02); PHOSPHOROUS 3.4 mg/dL (2.5-4.9); POTASSIUM 4.1 mmol/L (3.5-5.1); SGOT/AST 16 IU/L (3-35); SGPT/ALT 28 U/L (12-78); SODIUM 139 mmol/L (136-145); TOTAL PROTEIN 7.3 gm/dL (6.4-8.2)
[2018-08-31 15:35] LABS: BASO # 0.1 10*3/uL (0.0-0.1); BASO % 0.8 % (0.0-1.0); EOS # 0.1 10*3/uL (0.0-0.4); EOS % 1.8 % (1.0-4.0); HEMATOCRIT 33.8 % (37.0-47.0); HEMOGLOBIN 10.5 g/dl (12.0-16.0); LYMPH # 1.2 10*3/uL (1.3-4.4); LYMPH % 20.1 % (27.0-41.0); MEAN CELL VOLUME 79.5 fl (81.0-99.0); MEAN CORPUSCULAR HGB 24.7 pg (27.0-31.0); MEAN CORPUSCULAR HGB CONC 31.1 g/dl (33.0-37.0); MEAN PLATELET VOLUME 9.2 fl (9.6-12.3); MONO # 0.5 10*3/uL (0.1-1.0); MONO % 7.9 % (3.0-9.0); NEUT # 4.2 10*3/uL (2.3-7.9); NEUT % 69.1 % (47.0-73.0); PLATELET COUNT AUTOMATED 216 10*3/uL (130-400); RED BLOOD COUNT 4.25 10*6/uL (4.10-5.10); RED CELL DISTRI WIDTH 14.6 % (0-14.5); WHITE BLOOD COUNT 6.1 10*3/uL (4.8-10.8)
[2018-09-01 07:03] LABS: IMMUNOGLOBULIN G, QNT 666 mg/dL (700-1600)
== END | disposition home or self-care (01) ==
LOC: LAB 14:40
PROVIDERS: Nurse Practitioner
DX: D80.1 Nonfamilial hypogammaglobulinemia (principal)

== ENCOUNTER 2018-09-07 09:25 | Inpatient (IN) | payer MEDICARE ==
[~2018-09-07] VITALS: Ht 162.6 cm; Wt 92.1 kg
--- NOTE | ~2018-09-07 | PR ---
[place], [place] PROGRESS NOTE NAME: JUANCARLOS BRAMBILA UNIT #: [id number] ROOM: 402 DOCTOR: HALI ELAINE MD BIRTHDATE: [birth year] DOS: 09/09/2018 SUBJECTIVE: The patient continues to do better. Her breathing is improving. OBJECTIVE: GENERAL APPEARANCE: The patient is alert and oriented x 3, in no visible distress. VITAL SIGNS: Blood pressure 113/45, heart rate of 94 beats per minute, breathing 20 times per minute, temperature 98 degrees Fahrenheit. HEENT AND NECK: Exam within normal limits. CARDIOVASCULAR SYSTEM: Heart rate is regular in rate and rhythm. S1 and S2 normally audible. LUNGS: Clear to auscultation. ABDOMEN: Soft, nontender. No obvious organomegaly. Bowel sounds are present. EXTREMITIES: Without significant cyanosis or edema. IMPRESSION: 1. The patient with acute exacerbation of chronic obstructive pulmonary disease, continues to improve with treatment with corticosteroids, oxygen, nebulizer, antibiotics. I will be able to discharge the patient tomorrow with treatment. 2. Type 2 diabetes mellitus with corticosteroid-induced hyperglycemia. Blood sugars have improved with treatment with insulin. 3. Benign essential hypertension, treated and controlled. 4. Hypothyroidism replaced with levothyroxine. 5. Chronic primary insomnia, treated with trazodone as needed. HALI ELAINE MD CM:PNTRANS [id number] HALI ELAINE MD 09/09/18 1147 interface
--- NOTE | ~2018-09-07 | DS ---
[place], [place] DISCHARGE SUMMARY [id number] #: [id number] ROOM: 408 DOCTOR: HALI ELAINE MD BIRTHDATE: [birth year] DOS: 09/11/2018 DISCHARGE DIAGNOSES: 1. Nonsustained ventricular tachycardia evaluated by Cardiology, no further workup recommended. 2. Acute exacerbation of chronic obstructive pulmonary disease. 3. Chronic diastolic type congestive heart failure. 4. Type 2 diabetes mellitus. 5. Corticosteroid-induced hyperglycemia. 6. Benign essential hypertension. 7. Hypothyroidism. 8. Chronic primary insomnia. 9. Fibromyalgia and chronic pains. 10. Hypothyroidism. 11. Hyperlipidemia. 12. Lumbar spinal stenosis. 13. Coronary artery disease of the [place] vessels. 14. Mild protein-calorie malnutrition. HOSPITAL COURSE: The patient was admitted when she presented with increased shortness of breath, wheezing, and later on, severe cough with purulent greenish sputum, some chills and she was constantly feeling cold. After admission, she was treated with corticosteroids, oxygen, nebulizer treatments, antibiotics and oxygen and her breathing has improved to baseline. The patient was having severe coughing spells which improved with cough medicine and she is feeling comfortable enough to go home. The patient's pulse ox is remaining now at 100% at room air. 1. Type 2 diabetes mellitus with corticosteroid-induced hyperglycemia, improved with treatment with insulin. 2. Hypothyroidism, replaced with levothyroxine. 3. Benign essential hypertension, treated and controlled. 4. The patient had nonsustained ventricular tachycardia, evaluated by Dr. Saenz, the paste mixer and he recommended no further intervention or medications. LABORATORY DATA: Blood sugars have improved to generally below 200 range. Sputum cultures grew normal marquez. Normal serum electrolytes. Albumin level of 3. DISCHARGE MANAGEMENT: Mucinex DM b.i.d., potassium chloride 8 mEq daily, lisinopril 10 mg a day, furosemide 40 mg a day, aspirin 81 mg a day, levothyroxine 112 mcg daily, Medrol Dosepak, Augmentin 875 mg twice a day for a week, trazodone 100 mg at bedtime as needed, Pepcid 20 mg b.i.d., metoprolol 50 mg b.i.d., DuoNeb q.i.d. p.r.n., NPH insulin 20 units subcutaneous b.i.d., Vicodin b.i.d. p.r.n. for pain. Follow up with Dr. Peacock next week, her PCP. [place], [place] DISCHARGE SUMMARY NAME: JUANCARLOS BRAMBILA UNIT #: [id number] ROOM: [facility] DOCTOR: HALI ELAINE MD BIRTHDATE: [birth year] HALI ELAINE MD CM:NOEMI [id number] HALI ELAINE MD 09/11/18 1516 interface
--- NOTE | ~2018-09-07 | PR ---
[place], [place] PROGRESS NOTE NAME: JUANCARLOS BRAMBILA UNIT #: [id number] ROOM: 408 DOCTOR: HALI ELAINE MD BIRTHDATE: [birth year] DOS: 09/10/2018 SUBJECTIVE: The patient says she had severe coughing and is not feeling as good as yesterday. OBJECTIVE: VITAL SIGNS: Blood pressure 136/58, heart rate 88 beats per minute, breathing 18 times per minute, temperature 98 degrees Fahrenheit. GENERAL APPEARANCE: The patient is alert and oriented x 3, in no visible distress. HEENT AND NECK: Exam within normal limits. CARDIOVASCULAR SYSTEM: Heart rate is regular in rate and rhythm. S1 and S2 normally audible. LUNGS: Clear to auscultation. ABDOMEN: Soft, nontender. No obvious organomegaly. Bowel sounds are present. EXTREMITIES: Without significant cyanosis or edema. IMPRESSION: 1. The patient with nonsustained ventricular tachycardia, 20 beats. No further recommendation by cardiologists who were consulted. 2. Acute exacerbation of chronic obstructive pulmonary disease with significant coughing last night. The patient feels tired, so I am not discharging her to home today. Continue treatment with corticosteroids, oxygen, nebulizer treatments. Possible discharge to home tomorrow. 3. Type 2 diabetes mellitus and corticosteroid steroid-induced hyperglycemia, being treated with insulin, improved. 4. Benign essential hypertension, treated and controlled. 5. Hypothyroidism, replaced with levothyroxine. 6. Chronic primary insomnia, being treated with trazodone as needed. HALI ELAINE MD CM:PNTRANS [id number] HALI ELAINE MD 09/11/18 1336 interface
--- NOTE | ~2018-09-07 | PR ---
[place], [place] PROGRESS NOTE NAME: JUANCARLOS BRAMBILA UNIT #: [id number] ROOM: 402 DOCTOR: KAYE FINLEY MD BIRTHDATE: [birth year] DOS: 09/09/2018 SUBJECTIVE: The patient was seen at her bedside today 09/09/2018 for followup of palpitations, nonsustained ventricular tachycardia and dyspnea. She is a 72-year-old woman with a history of diastolic congestive heart failure and is typically followed by the physicians of the [facility] in [place]. She presented to the hospital on this occasion with worsening dyspnea and apparent bronchitis. She is being treated with steroids and antibiotics and is gradually improving. Early yesterday morning, she did have a 20-beat run of nonsustained ventricular tachycardia. This has not recurred since then. PHYSICAL EXAMINATION: VITAL SIGNS: Today, her pulse is 74 and regular, blood pressure is 118/54. She is afebrile. NECK: Supple. She has no jugular distention or hepatojugular reflux. Carotids are full. LUNGS: Respirations are unlabored. She does have marked expiratory prolongation, but no wheezes or rales. She has no presacral edema. HEART: Has a regular rhythm with an S4 gallop, but no S3 or murmur. The PMI is not displaced. ABDOMEN: Soft and normally active. EXTREMITIES: Showed no edema. IMPRESSION: 1. History of diastolic congestive heart failure. 2. Nonsustained ventricular tachycardia. 3. History of palpitations. 4. Coronary artery disease, status post stent in 02/2016. 5. Bronchitis. 6. Hypertension. 7. Hyperlipidemia with statin intolerance. 8. Type 2 diabetes mellitus. PLAN: I would continue to manage her respiratory problems as is appropriate and directed by her primary physician. No other cardiac workup is planned at this time. She will continue to be monitored while she is in the hospital and should follow up with her primary tar worker upon discharge. We will remain available to see her if needed. I thank Dr. Kwok for asking our advice regarding her care. [place], [place] PROGRESS NOTE NAME: JUANCARLOS BRAMBILA UNIT #: [id number] ROOM: 402 DOCTOR: KAYE FINLEY MD BIRTHDATE: [birth year] KAYE FINLEY MD CM:PNTRANS 1817 KAYE FINLEY MD 09/10/18 0744 interface
--- NOTE | ~2018-09-07 | WRIGHTHP ---
[place], [place] PATIENT HISTORY AND PHYSICAL EXAM NAME: JUANCARLOS BRAMBILA [facility] #: [id number] UNIT #: [id number] ROOM: 402 DOCTOR: HALI ELAINE MD BIRTHDATE: [birth year] DOS: 09/07/2018 HISTORY OF PRESENT ILLNESS: 1. A 72-year-old female with a past medical history of diastolic type chronic CHF. Benign essential hypertension, coronary artery disease. 2. Fibromyalgia and chronic pains. 3. Hypothyroidism. 4. Hyperlipidemia. 5. Lumbar spinal stenosis. 6. Type 2 diabetes mellitus, insulin requiring. The patient presented with increased shortness of breath for the last several days and she was seen in the Emergency Department by Dr. Fang. The patient had a greenish color sputum and there were some chills and she was constantly feeling cold. The patient also had a cough since Friday. The patient was evaluated in the Emergency Department and diagnosed as having acute exacerbation of COPD and recommended for admission and further management. The patient has history of coronary artery disease and mixed hyperlipidemia. No chest pains. No other GI or urinary symptoms. REVIEW OF SYSTEMS: RESPIRATORY: Increased shortness of breath. GASTROINTESTINAL: No nausea, vomiting, diarrhea, constipation. CARDIOVASCULAR: No chest pains or palpitations. HOME MEDICATIONS: The patient takes trazodone, levothyroxine, furosemide, lisinopril, potassium, insulin, metoprolol and hydrocodone. FAMILY HISTORY: Noncontributory. ALLERGIES: Known allergies to SULFUR. PHYSICAL EXAMINATION: GENERAL: Alert, oriented x 3, no visible distress. HEENT AND NECK: Extraocular movements are intact. Sclerae are anicteric. Oral mucosa is moist and clean. No obvious facial weakness. Neck is supple without any lymphadenopathy. No thyromegaly. No JVD. No carotid arterial bruits. LUNGS: Slightly decreased breath sounds on lung auscultation and mild expiratory wheezing. CARDIOVASCULAR SYSTEM: Heart rate is regular in rate and rhythm. S1 and S2 normally audible. No significant murmur or any other abnormal cardiac sounds. ABDOMEN: Soft, nontender. No obvious organomegaly. Bowel sounds are present. No obvious herniation. EXTREMITIES: Without significant cyanosis or edema. Warm to touch. CENTRAL NERVOUS SYSTEM: Alert and oriented x 3. Cranial nerves II-XII are intact. Speech is normal. The patient is able to move all extremities. Normal muscle strength. Deep tendon reflexes are equal on both sides. Plantars were downgoing. [place], [place] PATIENT HISTORY AND PHYSICAL EXAM NAME: [facility]OS [id number] #: [id number] ROOM: [facility] DOCTOR: HALI ELAINE MD BIRTHDATE: [birth year] LABORATORY DATA: Chest x-ray is showing no acute abnormality. Normal serum electrolytes. Albumin low at 3. Hemoglobin 9.9. IMPRESSION: 1. Acute exacerbation of severe significant underlying chronic obstructive pulmonary disease, to be treated with corticosteroids, oxygen, nebulizer treatments, antibiotic and follow closely. 2. Type 2 diabetes mellitus. We will continue her insulin and her sugars will be monitored and treated as necessary. 3. Chronic primary insomnia, treated with trazodone. 4. Hypothyroidism, replaced with levothyroxine. 5. Benign essential hypertension, treated with metoprolol and lisinopril, which are being continued. HALI ELAINE MD CM:HISPHYS:PATIENT HISTORY AND PHYSICAL EXAMINATION 1739 1800 HALI ELAINE MD 09/07/18 1758 interface
--- NOTE | ~2018-09-07 | EKG ---
[place], [place] ELECTROCARDIOGRAM REPORT NAME: JUANCARLOS BRAMBILA UNIT #: [id number] ROOM: 402 DOCTOR: EPIPHANY DRAFT REPORT BIRTHDATE: [birth year] [facility] Test Date: 2018-09-08 Test Time: 05:08:23 Pat Name: JUANCARLOS BRAMBILA Department: Room: 402 2 Gender: F Garageman: : 1945 Requested By: HALI ELAINE Order Number: [id number] Reading MD: Pio Reeves MD Measurements Intervals [place] Rate: 87 P: 62 WA: 142 QRS: 61 QRSD: 92 T: 27 QT: 384 QTc: 462 Interpretive Statements Sinus rhythm RSR' in V1 or V2, right VCD or RVH Compared to ECG 07/23/2018 11:52:03 Right ventricular hypertrophy now present Electronically Signed On 09-10-2018 8:25:36 PST by Pio Reeves MD CM:EKGRPT:ELECTROCARDIOGRAM REPORT [id number] 0825 HALI ELAINE MD EPIPHANY DRAFT REPORT HALI ELAINE MD
--- NOTE | ~2018-09-07 | EKG ---
[place], [place] ELECTROCARDIOGRAM REPORT NAME: JUANCARLOS BRAMBILA UNIT #: [id number] ROOM: 402 DOCTOR: JOJO DRAFT REPORT BIRTHDATE: [birth year] [facility] Test Date: 2018-09-07 Test Time: 09:53:54 Pat Name: JUANCARLOS BRAMBILA Department: Room: 402 Gender: F Director General: RICARDO : 1945 Requested By: ALMITA MURRAY Order Number: [id number] Reading MD: Pio Reeves MD Measurements Intervals [place] Rate: 99 P: -18 IA: 91 QRS: 90 QRSD: 86 T: 100 QT: 360 QTc: 462 Interpretive Statements Sinus rhythm Borderline right axis deviation RSR' in V1 or V2, probably normal variant Nonspecific repol abnormality, lateral leads Baseline wander in lead(s) II Compared to ECG 07/23/2018 11:52:03 Early repolarization now present Electronically Signed On 09-10-2018 8:22:56 PST by Pio Reeves MD CM:EKGRPT:ELECTROCARDIOGRAM REPORT [id number] 0822 ALMITA URIBE DRAFT REPORT ALMITA MURRAY M.D.
--- NOTE | ~2018-09-07 | PR ---
[place], [place] PROGRESS NOTE NAME: JUANACRLOS BRAMBILA UNIT #: [id number] ROOM: 402 DOCTOR: HALI ELAINE MD BIRTHDATE: [birth year] DOS: 09/08/2018 SUBJECTIVE: The patient says she is starting to breathe better with treatment. OBJECTIVE: GENERAL APPEARANCE: The patient is alert and oriented x 3, in no visible distress. Obesity. VITAL SIGNS: Blood pressure 128/59, heart rate of 90 beats per minute, breathing 18 times per minute, temperature afebrile. HEENT AND NECK: Exam within normal limits. CARDIOVASCULAR SYSTEM: Heart rate is regular in rate and rhythm. S1 and S2 normally audible. LUNGS: Somewhat decreased breath sounds on lung auscultation. ABDOMEN: Soft, nontender. No obvious organomegaly. Bowel sounds are present. EXTREMITIES: Without significant cyanosis or edema. IMPRESSION: 1. The patient with acute exacerbation of chronic obstructive pulmonary disease, being treated with corticosteroids, oxygen and nebulizer treatments. Her breathing has started improving. The patient is also on antibiotic. 2. Type 2 diabetes mellitus with severely elevated blood sugars, which are being treated with insulin. 3. Chronic primary insomnia, treated and controlled with trazodone. 4. Hypothyroidism, replaced with levothyroxine. 5. Benign essential hypertension, treated and controlled. HALI ELAINE MD CM:PNTRANS 1842 HALI ELAINE MD 09/09/18 0400 interface
--- NOTE | ~2018-09-07 | CON ---
[place], [place] REPORT OF CONSULTATION NAME: JUANCARLOS BRAMBILA UNIT #: [id number] ROOM: 402 DOCTOR: STEFFANIE ANTON,BA BIRTHDATE: [birth year] DOS: 09/08/2018 CARDIOLOGY CONSULT REASON FOR CONSULTATION: Ventricular tachycardia. CLINICAL HISTORY: The patient is a 72-year-old patient with history of COPD, diabetes, fibromyalgia, presented to the Emergency Room for cough and productive sputum. For the past couple of days, she has gradually developed progressive cough with some green color productive sputum. She denies any fever or chills, but she had some progressive shortness of breath as well for the past few days. She had history of COPD and diabetes. No hemoptysis. No fever or chills. No nausea, vomiting, diarrhea. No chest pain or palpitations. No syncope. No headache. No tingling, numbness, or weakness. REVIEW OF SYSTEMS: Review of the 10 system negative except as described above. PAST MEDICAL HISTORY: 1. Diabetes type 2. 2. Anxiety. 3. Chronic back pain. 4. Acquired hypothyroidism. 5. Hypertension. 6. Fibromyalgia. 7. Coronary artery disease with stent in 2016. PAST SURGICAL HISTORY: History of hemorrhoidectomy, back surgery, partial thyroidectomy. FAMILY HISTORY: Nil contributory. ALLERGIES: The patient is allergic to SULFA. HOME MEDICATIONS: Reviewed. PHYSICAL EXAMINATION: VITAL SIGNS: Stable. GENERAL: The patient is alert, oriented, no acute distress. HEAD AND NECK: Pupils are round and no jaundice. Tongue was moist and pharynx clear. Neck is supple. No distended neck veins, no carotid bruit. CHEST: Symmetrical, nontender. LUNGS: A few scattered rhonchi, but good air entry bilaterally. HEART: Regular rhythm, no S3, no palpable thrills. Grade 1/6 systolic murmur. ABDOMEN: Benign, nontender. Bowel sounds normal. EXTREMITIES: Showed no edema. Distal pulses palpable. SKIN: Warm and dry. No cyanosis, no clubbing. RECTAL: Deferred. GENITOURINARY: Deferred. NEUROLOGIC: The patient is alert, oriented. No focal neurologic deficit. MUSCULOSKELETAL: No joint tenderness or swelling. [place], [place] REPORT OF CONSULTATION NAME: JUANCARLOS BRAMBILA UNIT #: [id number] ROOM: 402 DOCTOR: STEFFANIE ANTON,BA BIRTHDATE: [birth year] Medications and allergies, reviewed. REVIEW OF THE DIAGNOSTIC TESTS: EKG and labs reviewed. EKG showed normal sinus rhythm, normal QT interval. CBC, chemistry and labs reviewed. Hemoglobin 9.9 and magnesium is 1.7 on 08/31/2018. IMPRESSION: 1. Nonsustained ventricular tachycardia, 20 beat, the patient was symptomatic. 2. History of recurrent palpitation for the past 1-2 years. 3. Coronary artery disease, status post stent in 02/2016. 4. Anemia. 5. Upper respiratory illness. 6. Hypertension. 7. Dyslipidemia with statin intolerance. 8. Non-morbid obesity. RECOMMENDATIONS: 1. The patient denies any chest pain or palpitation at this time. 2. Clinically, no acute congestive heart failure. 3. The patient declined increasing her beta blockers due to borderline low blood pressure at home. 4. The patient stated that she has stress test and echo a few months ago with her digital controls technical officer, Dr. Rivera. 5. If she has no further arrhythmia, she can be discharged home tomorrow and follow with her digital controls technical officer and I would recommend outpatient cardiac event monitor. 6. The patient advised to take additional metoprolol 25 mg as needed if she developed palpitations at home. 7. Risk factor modification for diet, exercise and weight loss discussed. 8. There is no family at bedside at the time of my examination. BA VALIENTE MD CM:CONSTR:REPORT OF CONSULTATION 2148 09/09/18 1732 interface
[2018-09-07 09:27] VITALS: BP 154/73
[2018-09-07 10:07] LABS: BASO % 0.3 % (0.0-1.0); EOS # 0.1 10*3/uL (0.0-0.4); EOS % 1.5 % (1.0-4.0); HEMATOCRIT 31.4 % (37.0-47.0); HEMOGLOBIN 9.9 g/dl (12.0-16.0); LYMPH % 14.9 % (27.0-41.0); MEAN CELL VOLUME 78.9 fl (81.0-99.0); MEAN CORPUSCULAR HGB 24.9 pg (27.0-31.0); MEAN CORPUSCULAR HGB CONC 31.5 g/dl (33.0-37.0); MEAN PLATELET VOLUME 8.7 fl (9.6-12.3); MONO # 0.7 10*3/uL (0.1-1.0); MONO % 10.3 % (3.0-9.0); NEUT # 4.9 10*3/uL (2.3-7.9); NEUT % 72.7 % (47.0-73.0); PLATELET COUNT AUTOMATED 200 10*3/uL (130-400); RED BLOOD COUNT 3.98 10*6/uL (4.10-5.10); RED CELL DISTRI WIDTH 14.3 % (0-14.5); WHITE BLOOD COUNT 6.7 10*3/uL (4.8-10.8)
[2018-09-07 10:23] LABS: ALKALINE PHOSPHATASE 135 U/L (45-117); BUN 7 mg/dl (7-24); CHLORIDE 103 mmol/L (98-107); CREATININE 0.78 mg/dL (0.55-1.02); POTASSIUM 3.9 mmol/L (3.5-5.1); SGOT/AST 9 IU/L (3-35); SGPT/ALT 18 U/L (12-78); SODIUM 137 mmol/L (136-145)
--- NOTE | 2018-09-07 11:14 | NUR ---
STOP TIME FOR SOUL MEDROL IS NOW
[2018-09-07 11:23] VITALS: BP 146/70
[2018-09-07 12:14] VITALS: BP 154/64
--- NOTE | 2018-09-07 12:14 | NUR ---
A 72, admitted to , under the services of Dr. ARGENTINA ANTON,HALI Benavides with a diagnosis of COPD EXACERBATION. Chief complaint is SHORTNESS OF BREATH. COUGH. Patient arrived via bed from ER. Monitor applied. Initial assessment completed. Vital signs taken and recorded. DR. ARGENTINA ANTON,HALI Benavides notified of admission to the unit. Orders received. See assessment for past medical history, medications and allergies. Patient and/or family oriented to unit. [facility]. Clothing/patient valuable form completed. TONIA HA
--- NOTE | 2018-09-07 12:30 | NUR ---
MED REC UP TO DATE PER PATIENT. DR. ELAINE AWARE
--- NOTE | 2018-09-07 13:00 | NUR ---
DR. ELAINE ON FLOOR AT THIS TIME TO SEE PATIENT. AWAITING ORDERS.
[2018-09-07] MEDS ORDERED: Lopressor25 MG PO (13:50)
[2018-09-07] MEDS ORDERED: GLIPIZIDE5 MG PO (13:50)
[2018-09-07 16:00] VITALS: BP 137/53
[2018-09-07 20:00] VITALS: BP 159/70
--- NOTE | 2018-09-07 20:25 | NUR ---
NOTIFIED OF PATIENT'S REQUEST FOR SOMETHING FOR COUGH. INSTRUCTED TO ORDER CEPACHOL LOZENGE Q6H PRN.
--- NOTE | 2018-09-07 20:59 | NUR ---
PATIENT STATES HER SUGAR FEELS HIGH. STATES SHE JUST FEELS "ICKY" LIKE HOW SHE DOES WHEN GLUCOSE IS HIGH. BSG CHECKED AT THIS TIME. CRITICAL HIGH. STAT REFLEX ORDERED. WILL NOTIFY
--- NOTE | 2018-09-07 21:15 | NUR ---
NOTIFIED OF CRITICALLY HIGH GLUCOSE. INSTRUCTED TO ORDER 10 UNITS IV INSULIN NOW. ALSO INSTRUCTED TO ORDER Q4H GLUCOSE CHECKS WITH SLIDING SCALE COVERAGE.
--- NOTE | 2018-09-07 21:55 | NUR ---
IV INSULIN ADMINISTERED PER ONE TIME ORDER. WILL MONITOR EFFECTIVENESS. CALL LIGHT LEFT IN REACH.
[2018-09-08] VITALS: BP 143/62
--- NOTE | 2018-09-08 00:18 | NUR ---
NOTIFIED OF REPEAT BSG 516 AFTER 10 UNITS IV INSULIN. INSTRUCTED TO GIVE 15 UNITS OF SQ INSULIN PER SLIDING SCALE AND TO GIVE 10 UNITS IV X1 DOSE.
--- NOTE | 2018-09-08 05:13 | NUR ---
NOTIFIED OF 20 BEAT RUN OF [place]. PATIENT STATES SHE COULD FEEL HER HEART RACING AND THAT IT DOES THAT FROM TIME TO TIME. PATIENT STATES SHE JUST HAD A STRESS TEST DONE IN OR JUNE OF THIS YEAR WITH A OUT OF [facility]. PER OUR RECORDS, PATIENT HAD ECHO 04/24/[address]KWON TIDWELL THAT SHOWED AN EF OF 65%. PER , ORDER CARDIOLOGY CONSULT WITH DR.KWON TIDWELL. ALSO DISCUSSED LAST GLUCOSE 453 AND 15 UNITS COVERAGE GIVEN. DISCUSSED UPCOMING CHECK AT 0800 AND 20 UNITS OF 70/30 HUMULIN DUE AT 0730. INSTRUCTED TO HOLD 70/30 AND GIVE REGULAR INSULIN DOSE PER SLIDING SCALE.
--- NOTE | 2018-09-08 05:21 | NUR ---
'S ANSWERING SERVICE CALLED AT THIS TIME REGARDING CONSULT. MESSAGE LEFT WITH OPERATER.
[2018-09-08 08:00] VITALS: BP 134/68
[2018-09-08 12:00] VITALS: BP 107/38
--- NOTE | 2018-09-08 15:31 | NUR ---
Shift chart check completed.24 HR chart check completed.
[2018-09-08 16:00] VITALS: BP 128/59
--- NOTE | 2018-09-08 16:50 | NUR ---
ON ASSESSMENT PATIENT RESTING EASILY IN BED. HER CHEEKS ARE FLUSHED AND PT RELATES THIS "IS FROM STEROIDS". HACKY COUGH. NO DYSRHYTHMIAS. NO RESP DISTRESS. DR ELAIEN HAS VISITED.
--- NOTE | 2018-09-08 19:30 | NUR ---
ASSUMED CARE OF PT AT THIS TIME. PATIENT ASLEEP IN BED, RESPIRATIONS EASY, NO S/S OF DISTRESS NOTED. WILL MONITOR. CALL LIGHT LEFT IN REACH.
[2018-09-08 20:00] VITALS: BP 154/61
--- NOTE | 2018-09-08 20:42 | NUR ---
SPOKE TO REGARDING PATIENT'S NAUSEA AND EPISODE OF EMESIS. INSTRUCTED TO ORDER 8MG IV ZOFRAN Q6H PRN.
--- NOTE | 2018-09-08 22:32 | NUR ---
PATIENT STATES EARLIER IV ZOFRAN WAS EFFECTIVE. SCHEDULED METOPROLOL, NORCO, AND DESYREL GIVEN PER ORDER. WILL MONITOR. CALL LIGHT LEFT IN REACH.
[2018-09-09] VITALS: BP 113/45
--- NOTE | 2018-09-09 04:25 | NUR ---
PT MEDICATED WITH CEPACHOL LOZENGE PER PRN ORDER FOR C/O COUGHING FIT. WILL MONITOR EFFECTIVENESS. CALL LIGHT LEFT IN REACH.
[2018-09-09 08:00] VITALS: BP 122/70
--- NOTE | 2018-09-09 09:00 | NUR ---
Control Room Technician in to talk to patient. Patient states lives at home alone with family checking in on her. There are 3-4 steps in the home. Physician: Dr. Dorinda Peacock Pharmacy: [facility] health services: none Patient's level of ADLs: MINIMAL ASSIST Patient has working utilities: yes DME: walker, cane Follow-up physician's appointment after d/c: she prefers to make her own follow up appt after discharge Does patient want to access PORTAL?: no Discharge plan discussed with patient. She lives at home alone with family checking in on her. She is independent in her ADLs and ambulates with walker or a cane. She states she was cleared from the cylinder press operator helper and can drive again. When able she wants to go to the [facility] for OP therapy. When medically stable she will be discharged to home. KARLO WILSON
[2018-09-09 12:00] VITALS: BP 115/65
[2018-09-09 16:00] VITALS: BP 118/54
[2018-09-09 20:00] VITALS: BP 121/55
--- NOTE | 2018-09-09 21:28 | NUR ---
PT MEDICATED WITH CEPACHOL LOZENGE PER PRN ORDER FOR C/O COUGH. WILL MONITOR EFFECTIVENESS. CALL LIGHT LEFT IN REACH.
[2018-09-10] VITALS: BP 103/42
[2018-09-10 08:00] VITALS: BP 118/78
--- NOTE | 2018-09-10 09:15 | NUR ---
PT AWAKE ASSESSMENT COMPLETE. PT COUGHING ON ASSESSMENT. ADMINISTERED PO CEPACHOL PER ORDER. WILL MONITOR FOR EFFECTIVENESS
--- NOTE | 2018-09-10 10:20 | NUR ---
24 HR CHART CHECK COMPLETE
[2018-09-10 12:00] VITALS: BP 133/50
--- NOTE | 2018-09-10 13:00 | NUR ---
PT CONTINUES TO COUGH WITHOUT RELIEF. CALLED DR ELAINE. ORDER RECEIVED FOR MUCINEX DM.
--- NOTE | 2018-09-10 13:30 | NUR ---
ADMINISTERED PO MUCINEX FOR PT COUGH. WILL MONITOR FOR EFFECTIVENESS.
[2018-09-10 16:00] VITALS: BP 136/58
[2018-09-10 20:00] VITALS: BP 166/81
--- NOTE | 2018-09-10 23:16 | NUR ---
24 HR chart check completed.
[2018-09-11] VITALS: BP 145/60
--- NOTE | 2018-09-11 00:03 | NUR ---
PT. STATED SHE "THREW UP MY PILLS" NOT SEEN BY NURSE. ZOFRAN GIVEN PER ORDER FOR NAUSEA/VOMITING. SEE MAR. PT. STATED "I HAD GASTRIC BYPASS SURGERY YEARS AGO AND SOMETIMES THINGS GET STUCK AND BOY IT'S DOING A NUMBER ON ME."
--- NOTE | 2018-09-11 01:00 | NUR ---
zofran effective for nausea.
--- NOTE | 2018-09-11 09:00 | NUR ---
Intelligence Specialist in to see patient. No new needs or request at this time. She denies any home needs. When medically stable she will be discharged to home.
--- NOTE | 2018-09-11 10:15 | NUR ---
States routine pain medication was effective.
[2018-09-11] MEDS ORDERED: MUCINEX1200 M1 PO (10:42)
[2018-09-11] MEDS ORDERED: AUGMENTIN 875-875 MG PO (10:42)
[2018-09-11] MEDS ORDERED: MEDROL DOSEPAK4 MG PO (10:42)
--- NOTE | 2018-09-11 11:30 | NUR ---
Discharge instructions reviewed with patient/family. Patient receptive and verbalizes understanding. Follow-up care arranged. Written instructions given to patient/family. DIMAS MAI
--- NOTE | 2018-09-11 11:32 | NUR ---
Pt dc in care of self via wheelchair with assist of PA.
== END 2018-09-11 11:32 | disposition home or self-care (01) | DRG 191 ==
LOC: ED 09:25 → EDHOLD 11:07 → 4E 11:07
PROVIDERS: Emergency Medicine; ADMIT Internal Medicine
DX: J44.1 Chronic obstructive pulmonary disease with (acute) exacerbation (principal); I50.32 Chronic diastolic (congestive) heart failure; I47.2 Ventricular tachycardia; E44.1 Mild protein-calorie malnutrition; E11.65 Type 2 diabetes mellitus with hyperglycemia; F41.9 Anxiety disorder, unspecified; I25.10 Atherosclerotic heart disease of native coronary artery without angina pectoris; M47.9 Spondylosis, unspecified; F32.9 Major depressive disorder, single episode, unspecified; M79.7 Fibromyalgia; E78.5 Hyperlipidemia, unspecified; E78.2 Mixed hyperlipidemia; D64.9 Anemia, unspecified; E66.9 Obesity, unspecified; E03.9 Hypothyroidism, unspecified; G89.29 Other chronic pain; M48.061 Spinal stenosis, lumbar region without neurogenic claudication; K21.9 Gastro-esophageal reflux disease without esophagitis; Z85.850 Personal history of malignant neoplasm of thyroid; Z90.710 Acquired absence of both cervix and uterus; Z90.49 Acquired absence of other specified parts of digestive tract; Z95.5 Presence of coronary angioplasty implant and graft; Z98.51 Tubal ligation status; Z87.891 Personal history of nicotine dependence; Z82.49 Family history of ischemic heart disease and other diseases of the circulatory system; Z83.3 Family history of diabetes mellitus; Z80.8 Family history of malignant neoplasm of other organs or systems; Z82.3 Family history of stroke; Z88.2 Allergy status to sulfonamides; Z79.4 Long term (current) use of insulin; Z86.73 Personal history of transient ischemic attack (TIA), and cerebral infarction without residual deficits; Z68.34 Body mass index [BMI] 34.0-34.9, adult

== ENCOUNTER → 2018-09-30 | Outpatient (CLI) | payer MEDICARE ==
[~2018-09-30] MED LIST changes: +AUGMENTIN 875-875 MG PO; +Lopressor25 MG PO; +MEDROL DOSEPAK4 MG PO; +MUCINEX1200 M1 PO
== END | disposition home or self-care (01) ==
LOC: LAB 11:42
DX: J45.20 Mild intermittent asthma, uncomplicated (principal); G25.81 Restless legs syndrome; R40.0 Somnolence; F17.200 Nicotine dependence, unspecified, uncomplicated; R53.83 Other fatigue

== ENCOUNTER → 2019-01-29 | Outpatient (CLI) | payer MEDICARE ==
[2019-01-29 09:49] LABS: BASO % 0.6 % (0.0-1.0); EOS # 0.1 10*3/uL (0.0-0.4); EOS % 1.7 % (1.0-4.0); HEMATOCRIT 41.1 % (37.0-47.0); HEMOGLOBIN 14.4 g/dl (12.0-16.0); LYMPH # 1.1 10*3/uL (1.3-4.4); LYMPH % 16.7 % (27.0-41.0); MEAN CELL VOLUME 90.7 fl (81.0-99.0); MEAN CORPUSCULAR HGB 31.8 pg (27.0-31.0); MEAN PLATELET VOLUME 10.2 fl (9.6-12.3); MONO # 0.5 10*3/uL (0.1-1.0); MONO % 8.3 % (3.0-9.0); NEUT # 4.7 10*3/uL (2.3-7.9); NEUT % 72.2 % (47.0-73.0); PLATELET COUNT AUTOMATED 153 10*3/uL (130-400); RED BLOOD COUNT 4.53 10*6/uL (4.10-5.10); RED CELL DISTRI WIDTH 12.6 % (0-14.5); WHITE BLOOD COUNT 6.5 10*3/uL (4.8-10.8)
[2019-01-29 10:03] LABS: BUN 20 mg/dl (7-24); CHLORIDE 99 mmol/L (98-107); CREATININE 0.98 mg/dL (0.55-1.02); POTASSIUM 4.3 mmol/L (3.5-5.1); SODIUM 137 mmol/L (136-145)
== END | disposition home or self-care (01) ==
LOC: LAB 09:29
PROVIDERS: Internal Medicine
DX: Z01.818 Encounter for other preprocedural examination (principal); E11.65 Type 2 diabetes mellitus with hyperglycemia